=== PATIENT | female | born 1945 | race Two or more races ===

== ENCOUNTER 2021-06-28 10:00 | Inpatient (IN) | payer OTHER ==
[~2021-06-28] VITALS: Ht 149.9 cm; Wt 59.9 kg
[2021-07-05] MEDS ORDERED: ANORO ELLIPTA1 EACH IH (15:34)
[2021-07-05] MEDS ORDERED: MONTELUKAST SOD10 MG PO (15:35)
[2021-07-05] MEDS ORDERED: AVAPRO300 MG PO (15:35)
[2021-07-05] MEDS ORDERED: THEO-24400 MG PO (15:35)
[2021-07-05] MEDS ORDERED: ALDACTAZIDE 251 EACH PO (15:36)
[2021-07-05] MEDS ORDERED: VENTOLIN HFA18 GM IH (15:36)
[2021-07-05] MEDS ORDERED: IPRATROPIU0.2 MG/1 M IH (15:36)
== END 2021-07-09 17:34 | disposition home or self-care (01) | DRG 334 ==
LOC: SURH 07-05 10:30 → O/R 07-08 06:41 → SURH 07-08 06:41
PROVIDERS: ADMIT Colon & Rectal Surgery; ATTEND Colon & Rectal Surgery
PROC: 0KXM0ZZ Transfer Perineum Muscle, Open Approach (ICD-10-PCS; 2021-07-08)
PROC: 0DBQ8ZX Excision of Anus, Via Natural or Artificial Opening Endoscopic, Diagnostic (ICD-10-PCS; 2021-07-08)
PROC: 3E0F7SF Introduction of Other Gas into Respiratory Tract, Via Natural or Artificial Opening (ICD-10-PCS; 2021-07-08)
PROC: 3E0F7GC Introduction of Other Therapeutic Substance into Respiratory Tract, Via Natural or Artificial Opening (ICD-10-PCS; 2021-07-08)
PROC: 0DTP8ZZ Resection of Rectum, Via Natural or Artificial Opening Endoscopic (ICD-10-PCS; principal; 2021-07-08 12:15)
DX: K62.3 Rectal prolapse (principal); R15.9 Full incontinence of feces

== ENCOUNTER 2021-12-16 10:43 | Inpatient (IN) | payer OTHER ==
[~2021-12-16] VITALS: Ht 129.5 cm; Wt 53.5 kg
[~2021-12-16 10:43] MED LIST: ALDACTAZIDE 251 EACH PO; ANORO ELLIPTA1 EACH IH; AVAPRO300 MG PO; IPRATROPIU0.2 MG/1 M IH; MONTELUKAST SOD10 MG PO; THEO-24400 MG PO; VENTOLIN HFA18 GM IH
[2021-12-16] MEDS ORDERED: ANORO IH (12:28)
[2021-12-16] MEDS ORDERED: AVAPRO300 MG PO (12:28)
[2021-12-16] MEDS ORDERED: [UNRECOGNIZED DRUG - OTHER] PO (12:29)
[2021-12-16] MEDS ORDERED: MAGNESIUM400 MG PO (12:29)
[2021-12-16] MEDS ORDERED: ALDACTAZIDE 251 EACH (12:30)
[2021-12-16] MEDS ORDERED: PROCARDIA PO (12:31)
[2021-12-19] MEDS ORDERED: ADALAT CC30 MG (11:25)
[2021-12-19] MEDS ORDERED: NIFEDIPINE20 MG (11:25)
[2021-12-19] MEDS ORDERED: ANORO ELLIPTA1 EACH (11:26)
[2021-12-19] MEDS ORDERED: PROAIR HFA8.5 GM (11:28)
== END 2021-12-22 14:08 | disposition home or self-care (01) | DRG 330 ==
LOC: SURH 12-19 07:00 → SURG 12-19 07:45 → O/R 12-19 07:45 → SURH 12-19 11:00 → SURG 12-19 17:16
PROVIDERS: ADMIT Colon & Rectal Surgery; ATTEND Colon & Rectal Surgery
PROC: 0DQP4ZZ Repair Rectum, Percutaneous Endoscopic Approach (ICD-10-PCS; principal; 2021-12-19 07:00)
DX: K62.3 Rectal prolapse (principal); D62 Acute posthemorrhagic anemia; R15.9 Full incontinence of feces; I10 Essential (primary) hypertension

== ENCOUNTER 2021-12-19 07:20 | Outpatient (CLI) | payer OTHER ==
[~2021-12-19 07:20] MED LIST changes: +ALDACTAZIDE 251 EACH; +ANORO IH; +MAGNESIUM400 MG PO; +PROCARDIA PO; +[UNRECOGNIZED DRUG - OTHER] PO
[2021-12-19] MEDS ORDERED: NIFEDIPINE20 MG (11:25)
[2021-12-19] MEDS ORDERED: ADALAT CC30 MG (11:25)
[2021-12-19] MEDS ORDERED: ANORO ELLIPTA1 EACH (11:26)
[2021-12-19] MEDS ORDERED: PROAIR HFA8.5 GM (11:28)
== END 2021-12-19 07:26 | disposition home or self-care (01) ==
LOC: LAB 07:20
DX: E78.5 Hyperlipidemia, unspecified (principal)

== ENCOUNTER 2022-06-26 06:30 | Day surgery (SDC) | payer OTHER ==
[~2022-06-26] VITALS: Ht 134.6 cm; Wt 52.6 kg
[~2022-06-26 06:30] MED LIST changes: +ADALAT CC30 MG; +ANORO ELLIPTA1 EACH; +NIFEDIPINE20 MG; +PROAIR HFA8.5 GM; +SINGULAIR10 MG PO; +[UNRECOGNIZED DRUG - OTHER] PO
== END 2022-06-26 15:40 | disposition home or self-care (01) ==
LOC: CIR.AMB 06:30
PROVIDERS: ATTEND Colon & Rectal Surgery
DX: R15.9 Full incontinence of feces (principal); Z20.822 Contact with and (suspected) exposure to COVID-19; J45.909 Unspecified asthma, uncomplicated; Z86.16 Personal history of COVID-19
CPT/HCPCS: 64581; 95971; C1778

== ENCOUNTER 2022-07-10 08:52 | Day surgery (SDC) | payer OTHER | END 2022-07-10 15:05 | disposition home or self-care (01) | LOC: CIR.AMB 08:52 | PROVIDERS: ATTEND Colon & Rectal Surgery | DX: R15.9 Full incontinence of feces (principal); Z20.822 Contact with and (suspected) exposure to COVID-19; I10 Essential (primary) hypertension | CPT/HCPCS: 64590; 95972; C1767 ==

== ENCOUNTER 2022-11-20 09:41 | Day surgery (SDC) | payer OTHER ==
[~2022-11-20] VITALS: Ht 149.9 cm; Wt 52.2 kg
== END 2022-11-20 17:50 | disposition home or self-care (01) ==
LOC: CIR.AMB 09:41
PROVIDERS: ATTEND Colon & Rectal Surgery
DX: R15.9 Full incontinence of feces (principal); T85.193A Other mechanical complication of implanted electronic neurostimulator, generator, initial encounter; G89.18 Other acute postprocedural pain; Z20.822 Contact with and (suspected) exposure to COVID-19; I10 Essential (primary) hypertension